=== PATIENT | female | born 1995 | race Asian ===

== ENCOUNTER 2017-11-17 19:18 | Emergency (ER) | payer SELFPAY ==
[~2017-11-17] VITALS: Ht 152.4 cm; Wt 51.4 kg
[~2017-11-17 19:18] MED LIST: CLEAR LAX; DOCU-131 PO; FERR325T23 PO; HYDR-3240 PO; IBUP-1222 PO
[2017-11-17 19:33] VITALS: BP 133/93
[2017-11-17 20:07] LABS: BASOPHILS # (AUTO) 0.07 x10^3/uL (0-0.1); BASOPHILS % (AUTO) 1 % (0-1); EOSINOPHILS # (AUTO) 0.18 x10^3/uL (0-0.4); EOSINOPHILS % (AUTO) 2 % (1-7); LYMPHOCYTES # (AUTO) 2.37 x10^3/uL (1-3.4); LYMPHOCYTES % (AUTO) 21 % (22-44); MD NO; MEAN CORPUSCULAR HEMOGLOBIN 31.6 pg (27.0-34.8); MEAN CORPUSCULAR HGB CONC 34.6 g/dL (32.4-35.8); MEAN CORPUSCULAR VOLUME 91.3 fL (80-100); MEAN PLATELET VOLUME 7.4 fL (7.4-10.4); MONOCYTES # (AUTO) 0.62 x10^3/uL (0.2-0.8); MONOCYTES % (AUTO) 6 % (2-9); NEUTROPHILS # (AUTO) 7.86 x10^3/uL (1.8-6.8); NEUTROPHILS % (AUTO) 71 % (42-75); PLATELET COUNT 363 x10^3/uL (130-400); RED BLOOD COUNT 4.62 x10^6/uL (3.82-5.3); RED CELL DISTRIBUTION WIDTH 12.8 % (9.6-15.2)
== END 2017-11-17 20:37 | disposition left against medical advice (07) ==
LOC: ED 20:31
DX: N93.9 Abnormal uterine and vaginal bleeding, unspecified (principal)
CPT/HCPCS: 36415; 84702; 85025; 86901; 99284

== ENCOUNTER 2018-07-19 09:39 | Outpatient (CLI) | payer MEDICAID ==
[~2018-07-19] VITALS: Ht 152.4 cm; Wt 65.2 kg
[2018-07-19 10:01] VITALS: BP 122/71
[2018-07-19 11:00] LABS: AMPHETAMINE SCREEN, URINE Negative (Negative); BARBITURATE SCREEN, URINE Negative (Negative); BENZODIAZEPINE SCREEN, URINE Negative (Negative); CANNABINOID SCREEN, URINE Negative (Negative); COCAINE SCREEN, URINE Negative (Negative); METHADONE SCREEN, URINE Negative (Negative); OPIATE SCREEN, URINE Negative (Negative)
[2018-07-19 11:13] LABS: MICROSCOPIC INDICATED
[2018-07-19 11:55] LABS: MEAN CORPUSCULAR HEMOGLOBIN 30.6 pg (27.0-34.8); MEAN CORPUSCULAR HGB CONC 33.8 g/dL (32.4-35.8); MEAN CORPUSCULAR VOLUME 90.4 fL (80-100); MEAN PLATELET VOLUME 7.8 fL (7.4-10.4); PLATELET COUNT 317 x10^3/uL (130-400); RED BLOOD COUNT 4.06 x10^6/uL (3.82-5.3); RED CELL DISTRIBUTION WIDTH 13.3 % (9.6-15.2)
== END 2018-07-19 11:45 | disposition home or self-care (01) ==
LOC: LDOP 09:39
PROVIDERS: ATTEND Obstetrics & Gynecology
DX: O46.92 Antepartum hemorrhage, unspecified, second trimester (principal); Z3A.19 19 weeks gestation of pregnancy
CPT/HCPCS: 36415; 80307; 81001; 85027; 86592; 86762; 86850; 86900; 87086; 87340; 87806; 99211; G0463; G0475

== ENCOUNTER 2019-04-07 18:54 | Emergency (ER) | payer MEDICAID ==
[~2019-04-07] VITALS: Ht 152.4 cm; Wt 66.0 kg
[~2019-04-07 18:54] MED LIST changes: +PREN1TAB60 PO
[2019-04-07 19:06] VITALS: BP 134/94
--- NOTE | 2019-04-07 19:41 | NUR ---
PT PROVIDED SMALL URINE SAMPLE. UA COLLECTED AND TAKEN TO LAB.
[2019-04-07 19:56] LABS: CULTURE INDICATED? YES; MICROSCOPIC INDICATED
== END 2019-04-07 20:14 | disposition home or self-care (01) ==
LOC: ED 20:06
DX: N30.00 Acute cystitis without hematuria (principal)
CPT/HCPCS: 81001; 87086; 87186; 99283

== ENCOUNTER 2019-10-10 00:13 | Emergency (ER) | payer SELFPAY ==
[~2019-10-10] VITALS: Ht 152.4 cm; Wt 58.0 kg
[2019-10-10 00:14] VITALS: BP 129/85
== END 2019-10-10 01:51 | disposition home or self-care (01) ==
LOC: ED 00:55
DX: R05 Cough (principal); Z20.828 Contact with and (suspected) exposure to other viral communicable diseases; R06.02 Shortness of breath; R09.81 Nasal congestion
CPT/HCPCS: 36415; 71045; 87635; 93005; 99285

== ENCOUNTER 2019-10-21 18:03 | Emergency (ER) | payer OTHER ==
[~2019-10-21] VITALS: Ht 152.4 cm; Wt 56.4 kg
--- NOTE | 2019-10-21 18:34 | NUR ---
patient arrives to er with a cough. she was here a week ago for a cough and given benzonate but she states didn't work. so she is here today for cough again. she was tested for covd last time and it was negative.
--- NOTE | 2019-10-21 18:59 | NUR ---
RECEIVED REPORT FROM JACKI GAO. ERP TO BEDSIDE.
[2019-10-21 20:12] VITALS: BP 129/82
--- NOTE | 2019-10-21 20:15 | NUR ---
PT FOUND WALKING IN THE STOREY WITH BOYFRIEND. STATES "WHERE'S THE COFFEE CART, I WANT WATER, I'VE BEEN ASKING FOR 65 MINUTES. HOW MUCH LONGER, I HAVE TO LIGHT OUT EXAMINER MY DAUGHTER." PT EDUCATED ABOUT NPO STATUS WHILE CHART IS UP FOR RECHECK. PT UPDATED ON POC.
== END 2019-10-21 21:40 | disposition home or self-care (01) ==
LOC: ED 19:00
DX: M94.0 Chondrocostal junction syndrome [Tietze] (principal); R07.89 Other chest pain
CPT/HCPCS: 71046; 99283